=== PATIENT | male | born 1965 | race African-American/Black ===

== ENCOUNTER 2018-06-29 15:28 | Emergency (ER) | payer MEDICAID ==
[~2018-06-29] VITALS: Ht 188 cm; Wt 99.8 kg
[2018-06-29] MEDS ORDERED: NKM (15:29)
--- NOTE | 2018-06-29 15:40 | NUR ---
ED Nurse Note: PT walked in c/o left leg pain for couple of days, pt state he had bloot clot in his leg before and thinks that's causing pt's pain. pt AA&ox4, gcs=15, skin warm and dry, resp even and unlabored on RA, -n/v/d, cms intact BLE, noted tenderness on left lower extremity, cap refill <3sec, ambulatory w/ steady gait, will cont monitor.
[2018-06-29 16:00] VITALS: BP 120/87
[2018-06-29] MEDS ORDERED: HYDROcodone/Acetamin 7.5/325 tab ORAL ONE (16:15)
--- NOTE | 2018-06-29 16:19 | NUR ---
ED Nurse Note: Blood specimen sent.
[2018-06-29 16:40] LABS: ANION GAP 10 mmol/L (5-15); BLOOD UREA NITROGEN 17 mg/dL (7-18); CALCIUM 9.4 MG/DL (8.5-10.1); CARBON DIOXIDE 28 MMOL/L (21-32); CHLORIDE 96 MMOL/L (98-107); CREATININE 1.6 MG/DL (0.55-1.30); POTASSIUM 4.3 MMOL/L (3.5-5.1); SODIUM 134 MMOL/L (136-145)
[2018-06-29] MEDS ORDERED: Morphine Sulfate 4mg/ml Inj (IV USE ONLY) IVP ONE ×2 (16:45→21:00)
[2018-06-29 16:46] LABS: BASOPHILS % (AUTO) 2.6 % (0.0-2.0); EOSINOPHILS % (AUTO) 0.1 % (0.0-3.0); HEMATOCRIT 44.2 % (42.0-52.0); HEMOGLOBIN 14.6 G/DL (14.2-18.0); MEAN CORPUSCULAR VOLUME 84 FL (80-99); MONOCYTES % (AUTO) 7.5 % (1.0-10.0); NEUTROPHILS % (AUTO) 80.9 % (45.0-75.0); PLATELET COUNT 293 K/UL (150-450); RED BLOOD COUNT 5.25 M/UL (4.70-6.10); RED CELL DISTRIBUTION WIDTH 15.2 % (11.6-14.8); WHITE BLOOD COUNT 10.7 K/UL (4.8-10.8)
[2018-06-29 16:48] LABS: INR 1.1 (0.9-1.1)
[2018-06-29 16:53] LABS: ALANINE AMINOTRANSFERASE 77 U/L (12-78); ALBUMIN 3.9 G/DL (3.4-5.0); ALBUMIN/GLOBULIN RATIO 0.8 (1.0-2.7); ALKALINE PHOSPHATASE 134 U/L (46-116); ASPARTATE AMINO TRANSFERASE 246 U/L (15-37); BILIRUBIN,TOTAL 2.4 MG/DL (0.2-1.0); CREATINE KINASE 8882 U/L (26-308)
[2018-06-29 17:12] LABS: BILIRUBIN,DIRECT 0.6 MG/DL (0.0-0.3)
[2018-06-29 18:00] VITALS: BP 138/87
[2018-06-29] MEDS ORDERED: Enoxaparin 150mg Inj SUBQ ONE (18:30)
--- NOTE | 2018-06-29 18:37 | NUR ---
ED Nurse Note: Called [facility] for medication Lovenox, will be ready in 10mins.
--- NOTE | 2018-06-29 18:45 | NUR ---
ED Nurse Note: Pharmacist called and stated that Lovenox will take some time to mix the dose.
[2018-06-29] MEDS ORDERED: Enoxaparin Sodium 300mg/3ml vial SUBQ ONE ×2 (19:00)
[2018-06-29 20:00] VITALS: BP 143/83
--- NOTE | 2018-06-29 21:27 | Emergency Room Report ---
History of Present Illness General Chief Complaint: Pain Source: EMS (Jacqueline Lund) Present Illness HPI 52-year-old male presents to the emergency department complaining of 10 out of 10 in severity pain and swelling erythema to the left leg progressive 2 days. Patient denies trauma or fall he denies recent open wounds he reports he has had a history of DVT I've years ago in this leg. Patient denies chest pain, shortness of breath, fevers, chills, recent travel or immobilization. He reports pain is exacerbated upon attempts to stand or walk denies relieving factors. Patient states that he is here from a sober living however he does not have drug issues he was staying there as a means/source of transitional housing. (Jacqueline Lund) Allergies: Coded Allergies: No Known Allergies (Unverified , 06/29/18) Patient History Past Medical History: see triage record Past Surgical History: none Pertinent Family History: none Social History: Reports: drug use - denies.... has extremly long 5th digit nail , suspicious for cocaine use Reviewed Nursing Documentation: PMH: Agreed; PSxH: Agreed (Jacqueline Lund) Nursing Documentation-PMH Past Medical History: No History, Except For (Jacqueline Lund) Review of Systems All Other Systems: negative except mentioned in HPI (Jacqueline Lund) Physical Exam Vital Signs Date Time Temp Pulse Resp B/P (MAP) Pulse Ox O2 Delivery O2 Flow Rate FiO2 06/29/18 15:26 98.6 120 16 124/100 98 Room Air Sp02 EP Interpretation: reviewed, normal General Appearance: alert, GCS 15, non-toxic, mild distress, other - mildly unkept/contaminated clothing. Head: normocephalic, atraumatic Eyes: bilateral eye normal inspection, bilateral eye PERRL ENT: hearing grossly normal, normal voice Neck: full range of motion Respiratory: lungs clear, normal breath sounds, no respiratory distress, no wheezing, speaking full sentences Cardiovascular #1: regular rate, rhythm Cardiovascular #2: 2+ dorsalis pedis (R) - posterior tibial, 2+ dorsalis pedis (L) - posterior tibial Musculoskeletal: back normal, normal range of motion, tender - LLE Tenderness and swelling ( calf), positive homans, erythema also noted. Neurologic: alert, oriented x3, responsive, motor strength/tone normal, sensory intact, speech normal, grossly normal Psychiatric: judgement/insight normal Skin: normal color, no rash, warm/dry, well hydrated (Jacqueline Lund) Medical Decision Making PA Attestation Dr. Wallace is my supervising Physician whom patient management has been discussed with. (Jacqueline Lund) Diagnostic Impression: Primary Impression: DVT of popliteal vein Qualified Codes: I82.432 - Acute embolism and thrombosis of left popliteal vein ER Course Pt. presents to the ED c/o lower extremity pain x2 days, unilateral swelling, erythema, increase in temperature. Pt recently s/p slip and fall and has been mainly bed ridden. Ddx considered but are not limited to Cellulitis, DVT, varicose vein, PAD, Venous insufficiency Vital signs: Pt. is tachycardic, normal o2 sats. pt. is afebrile H&PE are most consistent with possible DVT. ORDERS: CMP, CBC with Diff, PT/PTT: notable elevation in CK--8882, AST: 242, Cr. 1.6 LE duplex U/s to R/O dvt. POSITIVE FOR ACUTE THROMBUS in POPLITEAL ED INTERVENTIONS: -Lovenox SubQ 1.5mg/kg - 1 Liter NS bolus x 2 -4mg Morphine IV x 2 DISPOSITION: at this time pt. will be admitted to [facility]. to Dr. Lopez for Acute DVT in [facility] Dr. Lopez agreed to admit the pt. and to continue pt. care management. Labs Test 06/29/18 16:20 White Blood Count 10.7 K/UL (4.8-10.8) Red Blood Count 5.25 M/UL (4.70-6.10) Hemoglobin 14.6 G/DL (14.2-18.0) Hematocrit 44.2 % (42.0-52.0) Mean Corpuscular Volume 84 FL (80-99) Mean Corpuscular Hemoglobin 27.7 PG (27.0-31.0) Mean Corpuscular Hemoglobin Concent 33.0 G/DL (32.0-36.0) Red Cell Distribution Width 15.2 % (11.6-14.8) Platelet Count 293 K/UL (150-450) Mean Platelet Volume 6.5 FL (6.5-10.1) Neutrophils (%) (Auto) 80.9 % (45.0-75.0) Lymphocytes (%) (Auto) 9.0 % (20.0-45.0) Monocytes (%) (Auto) 7.5 % (1.0-10.0) Eosinophils (%) (Auto) 0.1 % (0.0-3.0) Basophils (%) (Auto) 2.6 % (0.0-2.0) Prothrombin Time 11.1 SEC (9.30-11.50) Prothromb Time International Ratio 1.1 (0.9-1.1) Activated Partial Thromboplast Time 28 SEC (23-33) Sodium Level 134 MMOL/L (136-145) Potassium Level 4.3 MMOL/L (3.5-5.1) Chloride Level 96 MMOL/L (98-107) Carbon Dioxide Level 28 MMOL/L (21-32) Anion Gap 10 mmol/L (5-15) Blood Urea Nitrogen 17 mg/dL (7-18) Creatinine 1.6 MG/DL (0.55-1.30) Estimat Glomerular Filtration Rate 45.8 mL/min (>60) Glucose Level 123 MG/DL (74-106) Calcium Level 9.4 MG/DL (8.5-10.1) Total Bilirubin 2.4 MG/DL (0.2-1.0) Direct Bilirubin 0.6 MG/DL (0.0-0.3) Aspartate Amino Transf (AST/SGOT) 246 U/L (15-37) Alanine Aminotransferase (ALT/SGPT) 77 U/L (12-78) Alkaline Phosphatase 134 U/L (46-116) Total Creatine Kinase 8882 U/L (26-308) Total Protein 9.1 G/DL (6.4-8.2) Albumin 3.9 G/DL (3.4-5.0) Globulin 5.2 g/dL Albumin/Globulin Ratio 0.8 (1.0-2.7) (Jacqueline Lund) ER Course Please see above note. Patient examined by me. I agree with assessment and treatment plan. Discussed with Dr. Lopez. Transfer to [facility]. (Before transport, presented to Dr. Ruiz.) (Juvencio Wallace MD) CT/MRI/US Diagnostic Results CT/MRI/US Diagnostic Results : Imaging Test Ordered: Venous Duplex US- Left Lower Extremity Impression POSITIVE FOR ACUTE THROMBUS in POPLITEAL (Jacqueline Lund) Last Vital Signs Date Time Temp Pulse Resp B/P (MAP) Pulse Ox O2 Delivery O2 Flow Rate FiO2 06/29/18 20:00 98.6 111 16 143/83 98 Room Air Status: improved (Jacqueline Lund) Status: improved (Juvencio Wallace MD) Disposition: XFER SHT-TRM HOSP Condition: Serious Referrals: [facility] (PCP) Jacqueline Lund Jun 29, 2018 21:27 Juvencio Wallace MD Jun 30, 2018 04:48
--- NOTE | 2018-06-29 22:36 | NUR ---
ED Nurse Note: REPORT GIVEN TO TITUS NESS FROM [facility].
--- NOTE | 2018-06-29 22:55 | NUR ---
ED Nurse Note: report given to THI Spain at [facility], Pt is getting transferred. RM 219-2. Pt vss, resp even and unlabored on RA. ambulance at the bedside for transfer, all belongings sent w/ pt, endorsed care to S amb.
[2018-06-29 22:57] VITALS: BP 150/77
--- NOTE | 2018-06-30 11:02 | Diagnostic Imaging Report ---
Indication: Left leg pain and swelling and edema Technique: Grayscale and duplex images of the left lower extremity veins. Comparison: none Findings: Grayscale and duplex images demonstrate occlusive thrombus within the left popliteal vein. There is resultant absence of Doppler flow, and absence of compressibility. Thrombus is hypoechoic. Impression: Positive for acute deep venous thrombosis of the left popliteal vein Findings are noted in the ER physician report in the electronic medical record
== END 2018-06-29 22:58 | disposition short-term general hospital (02) ==
LOC: EDBD 15:28 → EMR 16:00 → 3E 20:30 → UNDOADMIN 20:30 → EDBEDREQ 21:39 → EMR 22:58
DX: I82.432 Acute embolism and thrombosis of left popliteal vein (principal)
CPT/HCPCS: 36415; 80053; 82248; 82550; 85025; 85610; 85730; 93971; 96361; 96372; 96374; 96376; 99285; J1650; J2270